=== PATIENT | female | born 1960 | race American Indian/Alaskan Native ===

== ENCOUNTER 2020-01-24 11:20 | Outpatient (CLI) | payer OTHER ==
--- NOTE | 2020-01-24 13:52 | XRay Report ---
CERVICAL SPINE 4 VIEWS INDICATION: NECK PAIN. COMPARISON: None. IMPRESSION: There is borderline bone mineralization. Moderate multilevel degenerative changes are i dentified which are most pronounced at C4-5, C5-6 and C6-7. There is normal alignment. No bony lesion . No acute osseous or soft tissue abnormality. Signer Name: Odilon Sierra Jr, MD Signed: 01/24/2020 1:47 PM Workstation Name: [email or web address] [id number]
== END 2020-01-24 11:21 | disposition home or self-care (01) ==
LOC: XRAY 11:20
PROVIDERS: ATTEND Internal Medicine
DX: M47.812 Spondylosis without myelopathy or radiculopathy, cervical region (principal); I10 Essential (primary) hypertension; E11.9 Type 2 diabetes mellitus without complications
CPT/HCPCS: 72040

== ENCOUNTER 2021-09-27 10:13 | Outpatient (CLI) | payer OTHER ==
--- NOTE | 2021-09-27 12:06 | XRay Report ---
Left shoulder INDICATION: Shoulder pain FINDINGS: Postoperative change from prior rotator cuff repair. Degenerative change throughout the AC joint. No acute fracture or dislocation. Osteophyte extends inferiorly from the acromion resulting in impingement Signer Name: Sid Mcclelland MD Signed: 09/27/2021 11:56 AM Workstation Name: [id number]
--- NOTE | 2021-09-27 12:23 | XRay Report ---
Lumbar spine 4 views INDICATION: Back pain FINDINGS: Alignment appears normal. Endplate changes with facet arthropathy most significant L4-5 and L5-S1. Sacrum and sacroiliac joints appear normal. No compression fracture. Signer Name: Sid Mcclelland MD Signed: 09/27/2021 12:19 PM Workstation Name: [id number]
--- NOTE | 2021-09-27 12:33 | XRay Report ---
Bilateral knees INDICATION: Knee pain FINDINGS: There is tricompartmental degenerative change in left knee with joint space narrowing most significant in the medial compartment and patellofemoral joint. Mild degenerative change within the m edial compartment and patellofemoral joint of the right knee as well. No acute fracture or dislocatio n Signer Name: Sid Mcclelland MD Signed: 09/27/2021 12:29 PM Workstation Name: [id number]
== END 2021-09-27 10:14 | disposition home or self-care (01) ==
LOC: XRAY 10:13
PROVIDERS: ATTEND Internal Medicine
DX: M17.0 Bilateral primary osteoarthritis of knee (principal); M19.012 Primary osteoarthritis, left shoulder; M19.011 Primary osteoarthritis, right shoulder; M54.50 Low back pain, unspecified; M25.712 Osteophyte, left shoulder; M25.711 Osteophyte, right shoulder
CPT/HCPCS: 72100